=== PATIENT | male | born 1985 | race Caucasian/White ===

== ENCOUNTER 2016-08-25 22:28 | Emergency (ER) | payer MEDICAID ==
[2016-08-25 23:19] VITALS: BMI 27.3
[2016-08-25 23:47] LABS: LEUKOCYTES/URINE NEG (NEGATIVE); NITRITE/URINE NEG (NEGATIVE); URINE OCCULT BLOOD 1+ (NEG/TRACE); WBC/URINE 0-2 (0-2)
--- NOTE | 2016-08-26 00:52 | EDPRACDOC ---
- General Information Chief Complaint: Flu-Like Symptoms Stated Complaint: FEVER, BACK PAIN Time Seen by Provider: 08/26/16 00:37 Information Source: Patient Mode of Arrival: Car Home Medications: Home Medications Ondansetron [Zofran Odt] 4 mg PO Q6H PRN #20 tab.rapdis 03/20/16 Oxycodone HCl/Acetaminophen [Percocet 5-325 mg Tablet] 1 - 2 tab PO Q4H PRN #14 tab 03/20/16 Permethrin [Elimite] 60 gm TP . #1 cream..g. 03/20/16 Amoxicillin Trihydrate [Amoxicillin] 500 mg PO TID #21 tab 08/26/16 Allergies/Adverse Reactions: Allergies Allergy/AdvReac Type Severity Reaction Status Date / Time No Known Allergies Allergy Verified 08/25/16 23:19 - History of Present Illness Onset: Today HPI: Pt c/o fever, chills, sore throat, cough, back pain x 1 day. Daughter has similar illness. Denies earache, congestion, sob, abd pain, n/v, changes in bowel in bladder, rash. Treated Infection: None Improves With: Reports: Tylenol Symptoms: Reports: Chills, Cough, Fever, Sore Throat ED Past Medical History - History Reviewed Yes Nurses notes reviewed and agree except as marked - Patient Medical History Psychological History: Denies: Depression - Social Medical History Smoking Status: Heavy tobacco smoker (5 or more cigarettes/day or daily pipe/ cigar) ETOH: Social Substance Abuse: None EDM Review of Systems - Review of Systems Constitutional: Chills, Fever Ears: No Symptoms Reported. negative: Pain, Hearing Loss, Drainage, Ear Pulling Throat: Pain Nose: No Symptoms Reported. negative: Congestion, Bleeding, Discharge, Injection, Swelling, Deformity, Ecchymosis, Tender, Abrasion, Laceration Mouth: No Symptoms Reported. negative: Pain, Drooling Respiratory: No Symptoms Reported. negative: Cough, Brassy Cough, Barky Cough, Shortness of Breath, Wheezing, Hemoptysis Cardiovascular: No Symptoms Reported. negative: Chest Pain, Palpitations, Syncope, Edema, Orthopnea, PND, Skin Mottling, Cyanosis Gastrointestinal: No Symptoms Reported. negative: Pain, Constipation, Nausea, Vomiting, Diarrhea, Melena, Formula Intolerance Genitourinary: No Symptoms Reported. negative: Dysuria, Hematuria, Frequency, Discharge, Bleeding, Testicular Pain, Neurological: No Symptoms Reported. negative: Headache, Dizziness, Seizure, Numbness, Weakness, Speech Difficulty, Gait Difficulty Musculoskeletal: Back Integumentary: No Symptoms Reported. negative: Itching, Rash, Bruising, Wound Allergic/Immunologic: No Symptoms Reported. negative: Hives, Itching Hematologic: No Symptoms Reported. negative: Lymphadenopathy, Easy Bruising, Easy Bleeding Psychiatric: No Symptoms Reported. negative: Anxiety, Depression, Hallucinations, Insomnia, Suicidal - Physical Exam Constitutional: Alert Oriented to: Time, Person, Place Last recorded Vital Signs: Last Vital Signs Temp 98.7 F 08/25/16 23:15 Pulse 95 08/25/16 23:15 Resp 20 08/25/16 23:15 BP 136/70 08/25/16 23:15 Pulse Ox 99 08/25/16 23:15 Oxygen Pulse Oxygen Saturation 99 O2 Device Room Air Oxygen Flow Rate Fraction of Inspired Oxygen ( FIO2) - HEENT Head: Normal ( normocephalic) Eye Exam: Normal (PERRL, EOMI, Sclera white) Oropharynx: Red, Tonsillar Hypertrophy Tympanic Membrane: Normal ENT EAC: Normal Nose: No Symptoms Reported (septum midline) Neck: Normal (FROM, trachea at midline) - Respiratory/Cardiovascular Respiratory: Normal - CTA (BBS clear to auscultation without adventitious sounds ) Cardiovascular: Normal (RRR without murmur, gallop or rub) - GI Auscultation: Normal (NABS) Palpation: Normal (Soft,No rebound or guarding, non distended) Tenderness: Non tender - Musculoskeletal Back: Normal (Non-Tender) Extremities: Normal (Normal tone, Pulses 2+ No cyanosis or edema, FROM) - Integumentary Skin: Normal, Warm, Dry Lymphatics: Normal (no adenopathy) - Neurologic Memory Impaired: Normal Motor Function: Normal (Normal tone, Pulses 2+ No cyanosis or edema, FROM) Mood Description: Normal Perception: Normal - Differential Diagnosis Influenza, Pharyngitis, URI, Viral Syndrome - Results Urine Color Yellow 08/25/16 23:20 Urine Clarity Clear 08/25/16 23:20 Urine pH 6.0 (5.0-8.0) 08/25/16 23:20 Ur Specific Hines 1.030 (1.003-1.035) 08/25/16 23:20 Urine Protein 1+ (NEG/TRACE) H 08/25/16 23:20 Urine Glucose (UA) Neg (NEGATIVE) 08/25/16 23:20 Urine Ketones Neg (NEGATIVE) 08/25/16 23:20 Urine Occult Blood 1+ (NEG/TRACE) H 08/25/16 23:20 Urine Nitrite Neg (NEGATIVE) 08/25/16 23:20 Urine Bilirubin Neg (NEGATIVE) 08/25/16 23:20 Urine Urobilinogen <2.0 MG/DL (0-1) 08/25/16 23:20 Ur Leukocyte Esterase Neg (NEGATIVE) 08/25/16 23:20 Urine RBC 5-10 (0-2) H 08/25/16 23:20 Urine WBC 0-2 (0-2) 08/25/16 23:20 Urine Bacteria Few (NEG/FEW) 08/25/16 23:20 Urine Mucus Large (NEG/OCC) 08/25/16 23:20 Lab Results 08/25/16 23:20 Urine Color Yellow Urine Clarity Clear Urine pH 6.0 Ur Specific Hines 1.030 Urine Protein 1+ H Urine Glucose (UA) Neg Urine Ketones Neg Urine Occult Blood 1+ H Urine Nitrite Neg Urine Bilirubin Neg Urine Urobilinogen <2.0 Ur Leukocyte Esterase Neg Urine RBC 5-10 H Urine WBC 0-2 Urine Bacteria Few Urine Mucus Large Decision Time to Discharge: 00:51 - Departure Disposition: Home Condition: Good Final Diagnosis: Hematuria Pharyngitis Qualifiers: Pharyngitis/tonsillitis etiology: other specified organisms Qualified Code(s): J02.8 - Acute pharyngitis due to other specified organisms Instructions: Strep Throat (ED), Acute Hematuria (ED), Fever in Adults (ED) Education/Counseling Given To: Patient Education/Counseling Given Regarding: Diagnosis, Treatment, Follow Up Referrals: None,No Provider [Primary Care Provider] - One Week Bonny Mendoza MD [Staff Physician] - One Week Prescriptions: Amoxicillin Trihydrate [Amoxicillin] 500 mg PO TID #21 tab Additional Instructions: Use Tylenol every 4 hours and Motrin every 6 hours as needed for fever. Return for worse or different symptoms.
[2016-08-26 00:54] VITALS: TEMP 99.5
[2016-08-26 01:12] VITALS: BP 135/64; PULSE 85
== END 2016-08-26 01:11 | disposition home or self-care (01) ==
LOC: ED 22:28
DX: J02.8 Acute pharyngitis due to other specified organisms (principal); R31.9 Hematuria, unspecified
CPT/HCPCS: 81001; 99283